=== PATIENT | male | born 1950 | race African-American/Black ===

== ENCOUNTER 2021-11-01 23:24 | Observation (INO) ==
[2021-11-01] MEDS ORDERED: methylPREDNISolone SOD SUC 125 MG/2 ML VIAL IV STA (23:54)
[2021-11-02 00:38] LABS: Basophils % 0.2 % (0.0-0.8); Eosinophils % 0.2 % (0.00-10.9); Hematocrit 31.5 VOL% (42.0-52.0); Hemoglobin 10.2 GM/DL (14.0-18.0); Immature Granulocytes % 1.1 %; Immature Granulocytes Absolute 0.09 #; Lymphocytes # 0.3 10*3/uL (1.4-4.0); Lymphocytes % 3.6 % (21.2-54.2); Mean Corpuscular HGB Conc 32.4 GM/DL (32-36); Mean Corpuscular Volume 92.1 FL (87-102); Mean Platelet Volume 9.7 FL (9.6-12.0); Monocytes # 0.2 10*3/uL (0.11-0.8); Monocytes % 2.5 % (1.7-12.7); Neutrophils % 92.4 % (38.7-73.9); Platelet Count 251 T/CUMM (130-400); Red Blood Count 3.42 MC/CUMM (3.8-5.5); Red Cell Distribution Width 15.4 % (9.3-17.3); White Blood Count 8.1 T/CUMM (4-12)
[2021-11-02 00:45] LABS: Alanine Aminotransferase 38 U/L (16-61); Albumin 3.6 G/DL (3.4-5.0); Alkaline Phosphatase 113 U/L (45-117); Aspartate Amino Transferase 32 U/L (0-37); Bilirubin,Total < 0.39 MG/DL (0.20-1.00); Blood Urea Nitrogen 13 MG/DL (7-18); Calcium 8.4 MG/DL (8.5-10.1); Carbon Dioxide 26 MMOL/L (21-32); Chloride 111 MMOL/L (98-107); Glucose 169 MG/DL (74-106); Potassium 3.9 MMOL/L (3.5-5.1); Sodium 143 MMOL/L (136-145); Total Protein 7.2 G/DL (6.4-8.2)
[2021-11-02] MEDS ORDERED: ALBUTEROL/IPRATROPIUM 3 ML NEB RESP TX STA (00:46)
[2021-11-02 00:59] LABS: INR 1.3; PT Patient Result 14.5 SECS (10.5-12.0)
[2021-11-02 01:07] LABS: Lymphocytes 5 % (20-55); Platelet Estimate Normal; Total Cells Counted 100
[2021-11-02] MEDS ORDERED: hydrALAZINE 20 MG/1 ML VIAL IV PRN (02:24)
[2021-11-02] MEDS ORDERED: GLUCAGON 1 MG VIAL IM PRN (02:24)
[2021-11-02] MEDS ORDERED: ONDANSETRON 4 MG/2 ML VIAL IV PRN (02:24)
[2021-11-02] MEDS ORDERED: DEXTROSE 10% 250 ML BAG IV PRN (02:24)
[2021-11-02] MEDS ORDERED: NICOTINE 21 MG/24 HR PATCH TRANSDERM PRN (02:56)
[2021-11-02] MEDS: methylPREDNISolone SOD SUC 40 MG/1 ML VIAL IV SCH ×2 (06:02→16:49)
[2021-11-02] MEDS: ALBUTEROL/IPRATROPIUM 3 ML NEB RESP TX SCH ×3 (06:59→19:50)
[2021-11-02] MEDS: PANTOPRAZOLE 40 MG TABLET PO SCH (08:27)
[2021-11-02] MEDS: INSULIN LISPRO 100 UNIT/ML SUBCUT SCH ×4 (08:54→21:09)
[2021-11-02] MEDS: ACETAMINOPHEN 325 MG TABLET PO PRN (21:08)
[2021-11-02] MEDS: PHENYTOIN ER 100 MG CAPSULE PO SCH (23:33)
[2021-11-02] MEDS: ATORVASTATIN 20 MG TABLET PO SCH (23:33)
[2021-11-03] MEDS: ALBUTEROL/IPRATROPIUM 3 ML NEB RESP TX SCH ×4 (01:10→19:45)
[2021-11-03] MEDS: methylPREDNISolone SOD SUC 40 MG/1 ML VIAL IV SCH ×3 (03:23→17:18)
[2021-11-03 05:37] LABS: Basophils % 0.4 % (0.0-0.8); Eosinophils % 0.8 % (0.00-10.9); Hematocrit 31.7 VOL% (42.0-52.0); Hemoglobin 10.2 GM/DL (14.0-18.0); Immature Granulocytes % 0.2 %; Immature Granulocytes Absolute 0.01 #; Lymphocytes # 0.8 10*3/uL (1.4-4.0); Lymphocytes % 15.3 % (21.2-54.2); Mean Corpuscular HGB Conc 32.2 GM/DL (32-36); Mean Corpuscular Volume 91.6 FL (87-102); Mean Platelet Volume 10.2 FL (9.6-12.0); Monocytes # 0.5 10*3/uL (0.11-0.8); Neutrophils % 73.3 % (38.7-73.9); Platelet Count 236 T/CUMM (130-400); Red Blood Count 3.46 MC/CUMM (3.8-5.5); Red Cell Distribution Width 15.4 % (9.3-17.3); White Blood Count 5.1 T/CUMM (4-12)
[2021-11-03 05:59] LABS: Calcium 8.6 MG/DL (8.5-10.1); Osmolality,Calculated 272.7 MOS/KG (273-304); Potassium 4.2 MMOL/L (3.5-5.1)
[2021-11-03] MEDS: PANTOPRAZOLE 40 MG TABLET PO SCH (09:55)
[2021-11-03] MEDS: INSULIN LISPRO 100 UNIT/ML SUBCUT SCH ×4 (09:55→20:04)
[2021-11-03] MEDS ORDERED: hydrOXYzine HCL 25 MG TABLET PO PRN (13:18)
[2021-11-03] MEDS: TAMSULOSIN 0.4 MG CAPSULE PO SCH ×2 (13:44→20:04)
[2021-11-03] MEDS: MONTELUKAST 10 MG TABLET PO SCH (13:44)
[2021-11-03] MEDS: FLUoxetine 10 MG CAPSULE PO SCH (13:44)
[2021-11-03] MEDS: NICOTINE 21 MG/24 HR PATCH TRANSDERM SCH (13:45)
[2021-11-03] MEDS: POLYETHYLENE GLYCOL POWDER 17 GM PACK PO SCH (13:45)
[2021-11-03] MEDS: QUEtiapine 100 MG TABLET PO SCH (20:03)
[2021-11-03] MEDS: ATORVASTATIN 20 MG TABLET PO SCH (20:03)
[2021-11-03] MEDS: PHENYTOIN ER 100 MG CAPSULE PO SCH (20:03)
[2021-11-04] MEDS: methylPREDNISolone SOD SUC 40 MG/1 ML VIAL IV SCH ×3 (01:04→16:24)
[2021-11-04] MEDS: ALBUTEROL/IPRATROPIUM 3 ML NEB RESP TX SCH ×4 (01:05→19:38)
[2021-11-04 06:39] LABS: Calcium 9.3 MG/DL (8.5-10.1); Potassium 4.4 MMOL/L (3.5-5.1)
[2021-11-04] MEDS ORDERED: amLODIPine 5 MG TABLET PO SCH (09:00)
[2021-11-04] MEDS: INSULIN LISPRO 100 UNIT/ML SUBCUT SCH ×4 (09:02→20:40)
[2021-11-04] MEDS: NICOTINE 21 MG/24 HR PATCH TRANSDERM SCH (09:11)
[2021-11-04] MEDS: ASPIRIN EC 81 MG TABLET PO SCH (09:11)
[2021-11-04] MEDS: MONTELUKAST 10 MG TABLET PO SCH (09:11)
[2021-11-04] MEDS: FLUoxetine 10 MG CAPSULE PO SCH (09:12)
[2021-11-04] MEDS: PANTOPRAZOLE 40 MG TABLET PO SCH (09:12)
[2021-11-04] MEDS: TAMSULOSIN 0.4 MG CAPSULE PO SCH ×2 (09:12→21:54)
[2021-11-04] MEDS: POLYETHYLENE GLYCOL POWDER 17 GM PACK PO SCH (09:14)
[2021-11-04] MEDS: DILTIAZEM CD 120 MG CAPSULE PO SCH (11:14)
[2021-11-04] MEDS: ENOXAPARIN 60 MG/0.6 ML SYRINGE SUBCUT SCH (12:32)
[2021-11-04] MEDS: CLOPIDOGREL 75 MG TABLET PO SCH (12:32)
[2021-11-04] MEDS: cefTRIAXone 2,000 MG in SODIUM CHLORIDE 0.9% 100 ML IV SCH (13:29)
[2021-11-04] MEDS: AZITHROMYCIN INJ 500 MG in SODIUM CHLORIDE 0.9% 250 ML IV SCH (14:19)
[2021-11-04] MEDS: QUEtiapine 100 MG TABLET PO SCH (21:53)
[2021-11-04] MEDS: ATORVASTATIN 20 MG TABLET PO SCH (21:54)
[2021-11-04] MEDS: PHENYTOIN ER 100 MG CAPSULE PO SCH (21:54)
[2021-11-04] MEDS: ACETAMINOPHEN 325 MG TABLET PO PRN (21:54)
[2021-11-05] MEDS: ALBUTEROL/IPRATROPIUM 3 ML NEB RESP TX SCH ×4 (00:40→19:05)
[2021-11-05] MEDS: ENOXAPARIN 60 MG/0.6 ML SYRINGE SUBCUT SCH ×2 (00:57→13:16)
[2021-11-05] MEDS: methylPREDNISolone SOD SUC 40 MG/1 ML VIAL IV SCH ×3 (00:57→16:11)
[2021-11-05 05:15] LABS: Basophils % 0.2 % (0.0-0.8); Eosinophils % 0.2 % (0.00-10.9); Hematocrit 31.5 VOL% (42.0-52.0); Hemoglobin 10.2 GM/DL (14.0-18.0); Immature Granulocytes % 0.2 %; Immature Granulocytes Absolute 0.01 #; Lymphocytes # 0.7 10*3/uL (1.4-4.0); Lymphocytes % 12.8 % (21.2-54.2); Mean Corpuscular HGB Conc 32.4 GM/DL (32-36); Mean Corpuscular Volume 91.6 FL (87-102); Mean Platelet Volume 9.8 FL (9.6-12.0); Monocytes # 0.3 10*3/uL (0.11-0.8); Monocytes % 5.3 % (1.7-12.7); Neutrophils % 81.3 % (38.7-73.9); Platelet Count 241 T/CUMM (130-400); Red Blood Count 3.44 MC/CUMM (3.8-5.5); Red Cell Distribution Width 14.9 % (9.3-17.3); White Blood Count 5.1 T/CUMM (4-12)
[2021-11-05 05:25] LABS: PT Patient Result 11.2 SECS (10.5-12.0)
[2021-11-05 05:32] LABS: Calcium 9.2 MG/DL (8.5-10.1); Osmolality,Calculated 277.5 MOS/KG (273-304); Potassium 4.3 MMOL/L (3.5-5.1)
[2021-11-05] MEDS: INSULIN LISPRO 100 UNIT/ML SUBCUT SCH ×4 (07:18→22:30)
[2021-11-05] MEDS: ASPIRIN EC 81 MG TABLET PO SCH (08:59)
[2021-11-05] MEDS: MONTELUKAST 10 MG TABLET PO SCH (08:59)
[2021-11-05] MEDS: POLYETHYLENE GLYCOL POWDER 17 GM PACK PO SCH (09:00)
[2021-11-05] MEDS: PANTOPRAZOLE 40 MG TABLET PO SCH (09:00)
[2021-11-05] MEDS: NICOTINE 21 MG/24 HR PATCH TRANSDERM SCH (09:00)
[2021-11-05] MEDS: CLOPIDOGREL 75 MG TABLET PO SCH (09:00)
[2021-11-05] MEDS: FLUoxetine 10 MG CAPSULE PO SCH (09:00)
[2021-11-05] MEDS: TAMSULOSIN 0.4 MG CAPSULE PO SCH ×2 (09:00→20:20)
[2021-11-05] MEDS: DILTIAZEM CD 120 MG CAPSULE PO SCH (09:00)
[2021-11-05] MEDS: cefTRIAXone 2,000 MG in SODIUM CHLORIDE 0.9% 100 ML IV SCH (13:16)
[2021-11-05] MEDS: AZITHROMYCIN INJ 500 MG in SODIUM CHLORIDE 0.9% 250 ML IV SCH (13:58)
[2021-11-05] MEDS: ATORVASTATIN 20 MG TABLET PO SCH (20:20)
[2021-11-05] MEDS: QUEtiapine 100 MG TABLET PO SCH (20:20)
[2021-11-05] MEDS: PHENYTOIN ER 100 MG CAPSULE PO SCH (20:20)
[2021-11-06] MEDS: ENOXAPARIN 60 MG/0.6 ML SYRINGE SUBCUT SCH (00:05)
[2021-11-06] MEDS: methylPREDNISolone SOD SUC 40 MG/1 ML VIAL IV SCH ×2 (00:05→08:40)
[2021-11-06] MEDS: ALBUTEROL/IPRATROPIUM 3 ML NEB RESP TX SCH ×3 (00:40→13:30)
[2021-11-06 08:13] LABS: Basophils % 0.1 % (0.0-0.8); Hematocrit 34.4 VOL% (42.0-52.0); Immature Granulocytes % 0.3 %; Immature Granulocytes Absolute 0.02 #; Lymphocytes # 1.1 10*3/uL (1.4-4.0); Lymphocytes % 14.4 % (21.2-54.2); Mean Corpuscular Volume 91.2 FL (87-102); Mean Platelet Volume 9.2 FL (9.6-12.0); Monocytes # 0.6 10*3/uL (0.11-0.8); Monocytes % 8.8 % (1.7-12.7); Neutrophils % 76.4 % (38.7-73.9); Platelet Count 278 T/CUMM (130-400); Red Blood Count 3.77 MC/CUMM (3.8-5.5); Red Cell Distribution Width 14.8 % (9.3-17.3); White Blood Count 7.3 T/CUMM (4-12)
[2021-11-06 08:38] LABS: Calcium 9.5 MG/DL (8.5-10.1); Osmolality,Calculated 273.8 MOS/KG (273-304); Potassium 4.1 MMOL/L (3.5-5.1)
[2021-11-06] MEDS: POLYETHYLENE GLYCOL POWDER 17 GM PACK PO SCH (08:40)
[2021-11-06] MEDS: cefTRIAXone 2,000 MG in SODIUM CHLORIDE 0.9% 100 ML IV SCH (08:40)
[2021-11-06] MEDS: NICOTINE 21 MG/24 HR PATCH TRANSDERM SCH (08:40)
[2021-11-06] MEDS: CLOPIDOGREL 75 MG TABLET PO SCH (08:41)
[2021-11-06] MEDS: TAMSULOSIN 0.4 MG CAPSULE PO SCH (08:41)
[2021-11-06] MEDS: MONTELUKAST 10 MG TABLET PO SCH (08:41)
[2021-11-06] MEDS: PANTOPRAZOLE 40 MG TABLET PO SCH (08:41)
[2021-11-06] MEDS: ASPIRIN EC 81 MG TABLET PO SCH (08:41)
[2021-11-06] MEDS: FLUoxetine 10 MG CAPSULE PO SCH (08:41)
[2021-11-06] MEDS: DILTIAZEM CD 120 MG CAPSULE PO SCH (08:41)
[2021-11-06] MEDS ORDERED: AZITHROMYCIN 250 MG TABLET PO SCH (09:00)
[2021-11-06] MEDS: INSULIN LISPRO 100 UNIT/ML SUBCUT SCH ×2 (09:27→12:19)
[2021-11-06] MEDS ORDERED: SULINDAC 200 MG TABLET PO PRN (09:51)
[2021-11-06] MEDS ORDERED: FLUTICASONE/SALMETEROL 250-50 DISKUS 14 DOSE INH SCH (10:00)
[2021-11-06] MEDS ORDERED: APIXABAN 2.5 MG TABLET PO SCH (11:00)
[2021-11-06] MEDS ORDERED: BUDESONIDE/FORMOTEROL 160-4.5 INHALER 6 GM INH SCH (11:00)
[2021-11-06 12:29] VITALS: BP 131/60
[2021-11-06] MEDS ORDERED: PANTOPRAZOLE 40 MG TABLET PO SCH (21:00)
[2021-11-06] MEDS ORDERED: FAMOTIDINE 20 MG TABLET PO SCH (21:00)
[2021-11-07] MEDS ORDERED: CEFDINIR 300 MG CAPSULE PO SCH (09:00)
[2021-11-07] MEDS ORDERED: CLOPIDOGREL 75 MG TABLET PO SCH (09:00)
[2021-11-07] MEDS ORDERED: MULTIVITAMIN (CENTRUM) TABLET PO SCH (09:00)
== END 2021-11-06 14:30 | disposition home or self-care (01) ==
LOC: EDUNIT# → EDBD → N.EDINP 23:24 → N.ED 23:24 → SUATTDRO 11-02 02:24 → N.EDINP 11-02 07:35 → N.5E 11-02 07:44
PROVIDERS: ADMIT Internal Medicine; ATTEND Hospitalist